=== PATIENT | male | born 1945 | race Caucasian/White ===

== ENCOUNTER 2017-10-22 02:36 | Emergency (ER) | payer MEDICARE, BC ==
[~2017-10-22] VITALS: Ht 312.4 cm; Wt 63.0 kg
[~2017-10-22 02:36] MED LIST: ACIPHEX20 MG; ACIPHEX20 MG PO; AMLODIPINE BESYL5 MG PO; AMPHETAMINE SAL20 MG PO; ARICEPT10 M1 PO; ARICEPT23 MG PO; AVODART0.5 MG PO; B COMPLEX WITH1 EACH PO; CARBIDOPA-LEVO1 EAC5 PO; CELEBREX200 MG PO; CENTRUM SILVER1 EAC3 PO; CO Q-10200 MG PO; COCONUT OIL1000 MG PO; CYMBALTA20 MG PO; CYMBALTA30 MG PO; DONEPEZIL HCL10 MG PO; GABAPENTIN100 MG PO; LACTULOSE20 GM/30 M PO; LYRICA75 MG PO; MELOXICAM15 MG PO; METHYLPHENIDATE PO; METOPROLOL TART25 MG PO; MIRAPEX0.25 MG PO; MIRAPEX1 MG PO; Morphine Pump IL; PRAMIPEXOLE DIHY1 MG; RIBAVIRIN200 M1 PO; SOVALDI PO; TAMSULOSIN HCL0.4 MG PO; TYLENOL WITH C1 EACH PO; WELCHOL625 MG PO; XIFAXAN550 MG PO; Z.0.AVODART0.5 MG PO; Z.0.DIOVAN40 MG PO; Z.0.FLOMAX0.4 MG PO; Z.0.GABAPENTIN100 MG PO; Z.0.METOPROLOL SUCC2 PO; Z.0.PROZAC40 MG PO; Z.0.WELLBUTRIN XL150 PO; Z.0.ZIPSOR25 MG PO; Z.1.ZEGERID 40 MG1 E PO
[2017-10-22] MEDS ORDERED: MORPHINE SULFATE 2 MG/ML SYR IM STA (03:17)
== END 2017-10-22 03:50 | disposition home or self-care (01) ==
LOC: FSED 02:36
DX: M54.5 Low back pain (principal); S39.012A Strain of muscle, fascia and tendon of lower back, initial encounter; G89.29 Other chronic pain
CPT/HCPCS: 99282; J2270